=== PATIENT | female | born 1970 | race Two or more races ===

== ENCOUNTER 2017-02-28 17:44 | Emergency (ER) | payer BC ==
[~2017-02-28] VITALS: Ht 162.6 cm; Wt 77.1 kg
--- NOTE | 2017-02-28 17:57 | NUR ---
[id number], [id number] FROM HOME: DIZZINESS, WEAKNESS S/P TAKING DRONABINOP 10MG PO. RR IS EVEN AND UNLABORED WITH NAD NOTED. SKIN IS WARM AND DRY. PLACED ON HOSPITAL GOWN. PLACED ON MONITOR. DR DANIELLE AT BS FOR EVAL.
--- NOTE | 2017-02-28 18:02 | NUR ---
PAGED PATIENT'S PRIMARY DR MACHO ALBRIGHT
[2017-02-28] MEDS ORDERED: ONDANSETRON HCL/PF 4 MG/2 ML VIAL ONE (18:14)
[2017-02-28 18:15] LABS: BASOPHILS % (AUTO) 0.1 % (0.0-2.0); EOSINOPHILS % (AUTO) 0.2 % (0.0-6.0); HEMATOCRIT 43 % (33-45); HEMOGLOBIN 14.4 g/dL (11.5-14.8); LYMPHOCYTES # (AUTO) 0.6 /CMM (0.8-4.8); LYMPHOCYTES % (AUTO) 12.8 % (20.0-44.0); MEAN CORPUSCULAR HEMOGLOBIN 31 PG (26.0-33.0); MEAN CORPUSCULAR HGB CONC 34 g/dl (31.0-36.0); MEAN CORPUSCULAR VOLUME 92 fL (82-100); MONOCYTES % (AUTO) 0.2 % (2.0-12.0); NEUTROPHILS # (AUTO) 4.4 /CMM (1.8-8.9); NEUTROPHILS % (AUTO) 86.7 % (43.0-81.0); PLATELET COUNT (AUTO) 235 /CMM (150-450); RDW COEFFICIENT OF VARIATION 11.5 (11.5-15.0); RED BLOOD CELL COUNT(AUTO) 4.67 MIL/uL (4.0-5.2)
[2017-02-28 18:25] LABS: CALCIUM, SERUM 9.4 mg/dL (8.5-10.1); CREATININE 0.9 mg/dL (0.6-1.3); POTASSIUM 3.9 mmol/L (3.5-5.1)
[2017-02-28] MEDS ORDERED: ONDANSETRON HCL/PF 4 MG/2 ML VIAL IVP ONE (18:30)
[2017-02-28] MEDS ORDERED: IV NS 0.9% 1,000 ML BAG IV ONE (18:30)
--- NOTE | 2017-02-28 19:01 | NUR ---
RECEIVED REPORT FROM MELONIE KNIGHT FOR ANU.
--- NOTE | 2017-02-28 19:39 | NUR ---
DR. DANIELLE AT BEDSIDE SPEAKING TO PT REGARDING RESULTS
--- NOTE | 2017-02-28 19:42 | NUR ---
IV removed. Catheter intact and site benign. Pressure and 4x4 applied to site. No bleeding noted. Patient discharged to home in stable condition. Written and verbal after care instructions given. Patient verbalizes understanding of instruction. ambulatory with a steady gait
[2017-02-28 19:43] VITALS: BP 110/68
== END 2017-02-28 19:43 | disposition home or self-care (01) ==
LOC: ER 17:52
DX: R11.0 Nausea (principal); T50.905A Adverse effect of unspecified drugs, medicaments and biological substances, initial encounter; Z85.43 Personal history of malignant neoplasm of ovary; Y92.89 Other specified places as the place of occurrence of the external cause
CPT/HCPCS: 36415; 80048; 82962; 85025; 93005; 96361; 96374; 99285; A4606; J2405; J7030; Z7610